=== PATIENT | female | born 1960 | race Caucasian/White ===

== ENCOUNTER → 2017-06-19 | Outpatient (CLI) | payer BC ==
[~2017-06-19] MED LIST: AMBIEN5 MG PO; ANTIVERT/2525 M1; ATIVAN1 MG PO; LEVAQUIN750 M1 PO; LIPITOR10 MG PO; PRILOSEC20 M1 PO; PRILOSEC40 MG PO; SINGULAIR10 M1 PO; VITAMIN D31 LIQ PO; ZITHROMAX Z PA250 MG PO; ZOFRAN ODT4 MG SL
== END | disposition home or self-care (01) ==
LOC: MAMMO 08:11
DX: Z12.31 Encounter for screening mammogram for malignant neoplasm of breast (principal)

== ENCOUNTER → 2017-10-03 | Day surgery (SDC) | payer BC ==
[~2017-10-03] VITALS: Ht 165.1 cm; Wt 45.4 kg
--- NOTE | ~2017-10-03 | PROC NOTE ---
[place], [place] PROCEDURE NOTE NAME: ADARSH BLACKWELL [facility] #: [id number] UNIT #: [id number] ROOM: DOCTOR: NAREN FRANKS MD BIRTHDATE: [birth year] DOS: 10/03/2017 PROCEDURE: 1. Esophagogastroduodenoscopy and biopsy. 2. Colonoscopy and polypectomy. INDICATION: 1. GERD. 2. Rectal bleeding. An informed consent was obtained from the patient after indication of procedures, alternatives, and potential complications were explained to her. PROCEDURE MEDICATION: Sedation was administered by Anesthesiology Department. Scope used was Olympus pediatric colonoscope variable stiffness GIF-180. Depth of insertion with the upper endoscopy was to the descending duodenum with the colonoscopy was to the cecum, which was identified by the usual landmarks, the appendiceal orifice, ileocecal valve and triangular fold, in addition to transillumination in the right lower quadrant. FINDINGS: After adequate sedation, the patient was placed in left lateral decubitus position. Upper endoscopy was performed first. The scope was introduced under direct visualization through the upper esophageal sphincter into the esophagus. Esophageal mucosa appeared normal with no ulcerations or strictures. Lower esophageal sphincter was identified at 38 cm from incisors. The stomach was then intubated and the gastric mucosa inspected. Moderate gastritis was seen. No discrete ulcers or active bleeding. A ARTURO test was performed from the gastric antrum and body. Retroflex views and fundus were unremarkable. Pylorus was intubated easily. The duodenal bulb and descending duodenum were within normal range. The scope was then withdrawn after the stomach was decompressed. We then proceeded with the colonoscopy. Rectal examination showed a diminished sphincter tone and no external hemorrhoids. The scope was introduced into the rectum, then advanced to the cecum with slight difficulty due to looping in the left colon. The prep was good. A 2.5 cm pedunculated polyp was identified in the mid sigmoid colon. The polyp was removed with a medium size snare with the hot technique in one piece. The remaining colon mucosa appeared otherwise normal. Retroflexed views in the rectum showed grade 2 internal hemorrhoids. The scope was then withdrawn after the rectum was decompressed. The patient tolerated the procedure well. IMPRESSION: 1. Moderate gastritis, CLOtest performed. 2. Large pedunculated sigmoid polyp, removed. 3. Internal hemorrhoids. PLAN: We will review the histopathology report and CLOtest and treat the patient accordingly. The patient was advised to avoid aspirin and NSAIDs for the next 10 days. Office followup will be scheduled in 2-3 weeks. [place], [place] PROCEDURE NOTE NAME: ADARSH BLACKWELL UNIT #: [id number] ROOM: DOCTOR: NAREN FRANKS MD BIRTHDATE: [birth year] NAREN FRANKS MD CM:PROCNOTE:PROCEDURE NOTE [id number] ZACKERY FRANKS MD
[2017-10-03 07:00] VITALS: BP 114/66
[2017-10-03 08:46] VITALS: BP 108/70
[2017-10-03 09:01] VITALS: BP 115/72
[2017-10-03 09:16] VITALS: BP 115/72
== END | disposition home or self-care (01) ==
LOC: SDC 08-18 11:00
DX: D12.5 Benign neoplasm of sigmoid colon (principal); K29.70 Gastritis, unspecified, without bleeding; K64.8 Other hemorrhoids; E83.19 Other disorders of iron metabolism; J44.9 Chronic obstructive pulmonary disease, unspecified; F41.9 Anxiety disorder, unspecified; F17.210 Nicotine dependence, cigarettes, uncomplicated; Z87.01 Personal history of pneumonia (recurrent); Z98.890 Other specified postprocedural states; Z98.51 Tubal ligation status; Z79.899 Other long term (current) drug therapy; Z82.49 Family history of ischemic heart disease and other diseases of the circulatory system; Z82.3 Family history of stroke

== ENCOUNTER → 2020-02-28 | Outpatient (CLI) | payer BC | END | disposition home or self-care (01) | LOC: COVID19 09:40 | PROVIDERS: ATTEND Family Medicine | DX: Z20.828 Contact with and (suspected) exposure to other viral communicable diseases (principal) ==

== ENCOUNTER → 2021-04-27 | Outpatient (CLI) | payer BC ==
[2021-04-27 16:57] LABS: CKMB 1.9 ng/ml (0.5-3.6)
== END | disposition home or self-care (01) ==
LOC: LAB 16:22
PROVIDERS: ATTEND Nurse Practitioner Primary Care
DX: J98.11 Atelectasis (principal); I70.0 Atherosclerosis of aorta; R07.9 Chest pain, unspecified